=== PATIENT | male | born 1990 | race Hispanic/Latino ===

== ENCOUNTER → 2021-02-21 | Day surgery (SDC) | payer OTHER, SELFPAY ==
[2021-02-20 10:25] LABS: BASOPHILS # (AUTO) 0.1 (0.0-0.1); EOSINOPHILS # (AUTO) 0.1 (0.0-0.4); EOSINOPHILS % 1.6 % (0.0-6.0); HEMATOCRIT 46.2 % (38.2-49.6); HEMOGLOBIN 15.7 g/dL (14.0-18.0); LYMPHOCYTES # (AUTO) 1.8 (1.0-3.2); LYMPHOCYTES % 29.7 % (18.0-39.1); MEAN CORPUSCULAR HEMOGLOBIN 30.3 pg (28-32); MEAN CORPUSCULAR VOLUME 89.2 fL (81-99); MONOCYTES # (AUTO) 0.6 (0.2-0.8); MONOCYTES % 9.7 % (4.4-11.3); NEUTROPHILS # (AUTO) 3.6 (2.1-6.9); NEUTROPHILS % 57.8 % (38.7-80.0); PLATELET COUNT 235 x10e3/uL (140-360); RED BLOOD COUNT 5.18 x10e6/uL (4.3-5.7); RED CELL DISTRIBUTION WIDTH 12.7 % (11.7-14.4)
[2021-02-20 10:49] LABS: ANION GAP 10.8 mmol/L (8-16); CALCIUM 9.3 mg/dL (8.4-10.2); CREATININE, SERUM 0.91 mg/dL (0.72-1.25); POTASSIUM 3.8 mmol/L (3.5-5.1)
[~2021-02-21] MED LIST: BUPIVACAINE HCL 0.5% INJ 30 ML VIAL INJ ONE; FENTANYL CITRATE/PF 100MCG/2 ML INJ ONE; HYDROCODONE/APAP 7.5MG-325MG 1 EA TAB ONE; LIDOCAINE 1% W/EPINEPHRINE 20 ML VIAL ONE; MIDAZOLAM HCL 2 MG/2 ML VIAL ONE; MORPHINE SULFATE INJ 2 MG/ML SYR ONE
[2021-02-21 14:00] VITALS: BP 101/67
== END | disposition home or self-care (01) ==
LOC: OR 07:53
PROVIDERS: ATTEND Surgery
DX: K40.90 Unilateral inguinal hernia, without obstruction or gangrene, not specified as recurrent (principal); Z01.812 Encounter for preprocedural laboratory examination; Z20.822 Contact with and (suspected) exposure to COVID-19
CPT/HCPCS: 36415; 49505; 80048; 85025; 88302; C1781; J2250; J2270; J3010; U0002; 88304